=== PATIENT | female | born 1985 | race Hispanic/Latino ===

== ENCOUNTER 2016-06-11 20:48 | Emergency (ER) | payer OTHER ==
[2016-06-11 22:27] VITALS: BMI 32.5
--- NOTE | 2016-06-22 15:23 | OBHP ---
Datetime: 06/11/2016 22:18 IP Adm Impression: , intrauterine IP Chief Complaint Other: SOB IP Admit Plan: Observation/Evaluation Admit Comment, IP Provider: 30 yo , f, at 25.4 weeks GA with GINA: 09/20/16 present c/o SOB that started today in the mornig on exertion while walking and going up stairs. For that reason patient was evaluated in [facility] in the morning, was found to have O2 sat 80-84. Patient w as advised to do CT chest, but signed AMA and went home. Patient tried to contact her Ob Dr vazquez a nd she was advised to come to [facility] for evaluation. At this moment in [place] patient denies SOB, chest pain, palpitation, cough, fever, leg pain or swelling, VB, LOF, Ctx, Hx/o DVT . She report s + FM. POBHx: None PGynHx: None PMhx/o: none Allergies: none Meds: vit PSurgHx: none Assessment/Plan: 30 yo , f, at 25.4 weeks GA. SOB possible secondary to physiologic changes of the . -Observation -O2 sat 98-99 Edgar Spence PGY1 Case discussed with Dr Crump Addendum by attending Dr. Crump: Patient evaluated independently and I agree with the above. Patie nt is @ 25.4 wks with earlier complaints of shortness of breath, now has no complaints. Patient denies CP, no SOB, no N/V, no palpitations, Vitals stable - HR stable in the 80s, BP = 110s/70s and O 2Sat = 99-100%. FHR = 150 mod anish, no accels no decels. NO contractions on the monitor. Patient does not seem to be in distress or maternal/ compromise. SPoke with Dr. Vazqeuz, patient to be discha rged home and has appointment in office tomorrow. Labor precautions given Pelvic Type - PN: Adequate Extremities - PN: Normal Abdomen - PN: Normal Back - PN: Normal Breast - PN: Normal Lungs - PN: Normal Heart - PN: Normal Thyroid - PN: Normal Neurologic - PN: Normal HEENT - PN: Normal General - PN: Normal FHR - Baseline A Provider: 150 Comments, ACOG Physical Exam: Resp: RR: 14 resp/min. CTA, no rhonchi, rales, wheezing. O2 sat 98-99 on sitting position and flat position. no orthopnea EGA AdmitDate IP: 25.4 Vital Signs Provider: Reviewed; Within Normal Limits IP Chief Complaint: Other NICHD Variability Prov Fetus A: Moderate 6-25bpm NICHD Accel Fetus A IP Provider: 15X15 FHR Category Provider Fetus A: Category I NICHD Decel Fetus A IP Provider: None Genitourinary Exam: Normal DTRs - PN: Normal
== END 2016-06-11 22:15 | disposition home or self-care (01) ==
LOC: H.EROB2 20:48
DX: O47.02 False labor before 37 completed weeks of gestation, second trimester (principal); Z3A.25 25 weeks gestation of pregnancy

== ENCOUNTER 2016-07-16 08:48 | Emergency (ER) | payer OTHER ==
[2016-07-16 10:08] VITALS: BMI 29.9
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
--- NOTE | 2016-07-16 13:05 | US ---
PROCEDURE: Biophysical profile HISTORY: decreased movment COMPARISON: 03/25/2016 TECHNIQUE: Standard protocol for this study/examination. FINDINGS: FINDINGS: Biophysical profile score 8/8 Based on the followin. breathing movements: 2/2 2. Gross body movement: 2/2 3. tone: 2/2 4. Qualitative amniotic fluid index: 2/2 Cephalic presentation. Interior Placenta. No evidence of abruption or previa Gestational age derived from LMP 30 weeks 4 days Gestational age derived from the following biometric parameters 30 weeks 3 days . Biparietal diameter 7.58 cm Head [id number] cm Abdominal circumference 26.1 cm Femur length 5.8 cm Estimated weight 1556 g Calculated cardiac rate 137 beats per min. Closed cervix measuring 3.82 cm IMPRESSION: Biophysical profile score 8/8. Thirty weeks 3 days live intrauterine gestation. GINA based on LMP: 09/20/2016 GINA based on biometry: 09/21/2016.
== END 2016-07-16 13:54 | disposition home or self-care (01) ==
LOC: H.EROB2 08:48
DX: O47.03 False labor before 37 completed weeks of gestation, third trimester (principal); Z3A.30 30 weeks gestation of pregnancy

== ENCOUNTER 2016-08-26 22:26 | Emergency (ER) | payer OTHER ==
[2016-07-18 10:34] VITALS: BMI 29.9
--- NOTE | 2016-08-31 13:32 | OBHP ---
Datetime: 08/27/2016 07:57 IP Adm Impression: , intrauterine IP Admit Plan: Observation/Evaluation; Discharge home Admit Comment, IP Provider: Patient is a @ 36.4 wks with decreased movement all day. Ian es VB, leaking, no ctxns. No antepartum issues, no medical problems, no previous surgeries. LEL=218 m od anish, +accels, no decels, no contractions noted on toco. Reassured patient that the baby had a reac tive and reassuring tracing. Labor precautions given. F/U with primary ob this week Pelvic Type - PN: Adequate Extremities - PN: Normal Abdomen - PN: Normal Back - PN: Normal Breast - PN: Normal Lungs - PN: Normal Heart - PN: Normal Thyroid - PN: Normal Neurologic - PN: Normal HEENT - PN: Normal General - PN: Normal FHR - Baseline A Provider: 130 EGA AdmitDate IP: 36.4 Vital Signs Provider: Reviewed; Within Normal Limits IP Chief Complaint: Decreased movement NICHD Variability Prov Fetus A: Moderate 6-25bpm NICHD Accel Fetus A IP Provider: 15X15 NICHD Decel Fetus A IP Provider: None Genitourinary Exam: Normal DTRs - PN: Normal
== END 2016-08-26 23:10 | disposition home or self-care (01) ==
LOC: H.EROB2 22:26
DX: O47.03 False labor before 37 completed weeks of gestation, third trimester (principal); Z3A.36 36 weeks gestation of pregnancy

== ENCOUNTER 2016-09-20 12:10 | Inpatient (IN) | payer OTHER ==
[~2016-09-20 12:10] MED LIST: Lactated Ringer's 1,000 ML IV ONE
[2016-09-20 12:14] VITALS: BMI 36.9
[2016-09-20] MEDS: Lactated Ringer's 1,000 ML IV SCH (12:15)
[2016-09-20 12:28] LABS: BASO % 0.8 % (0.0-2.0); EOS % 0.6 % (0.0-4.0); HEMOGLOBIN 11.4 g/dL (12.0-16.0); LYMPH # 1.7 K/uL (1.0-4.3); LYMPH % 29.7 % (20.0-40.0); MEAN CELL VOLUME 83.7 fl (81.0-99.0); MEAN CORPUSCULAR HGB CONC 32.3 g/dL (33.0-37.0); MEAN PLATELET VOLUME 9.1 fl (7.2-11.7); MONO # 0.5 K/uL (0.0-0.8); MONO % 8.5 % (0.0-10.0); NEUT # 3.4 K/uL (1.8-7.0); NEUT % 60.4 % (50.0-75.0); RBC 4.21 Mil/uL (3.80-5.20); RED CELL DISTRIBUTION WIDTH 15.9 % (11.5-14.5); WHITE BLOOD COUNT 5.6 K/uL (4.8-10.8)
[2016-09-20 12:50] VITALS: O2SAT 99
--- NOTE | 2016-09-20 21:05 | OBADHP ---
Datetime: 09/20/2016 21:01 IP Adm Impression Other: maternal discofort/ decreased fm Admit Comment, IP Provider: adimit to unit and start on augumentation with cervidyl Extremities - PN: Normal Abdomen - PN: Abnormal Back - PN: Normal Breast - PN: Normal Lungs - PN: Normal Heart - PN: Normal Thyroid - PN: Normal Neurologic - PN: Normal HEENT - PN: Normal General - PN: Normal Presentation-Admit: cephalic FHR - Baseline A Provider: 140-150's Membranes, Provider: Intact Contraction Comments Provider: irregular Comments, ACOG Physical Exam: Abd gravid NT, small scars Fundus at term; Ext no calg tenderness Gestation - Est Wks by US: 40 wks IP Chief Complaint: Uterine contractions; Decreased movement NICHD Variability Prov Fetus A: Moderate 6-25bpm NICHD Accel Fetus A IP Provider: 10X10 NICHD Decel Fetus A IP Provider: None Dilatation, Provider: 1cm Effacement, Provider: 20% Genitourinary Exam: Normal DTRs - PN: Normal EGA AdmitDate IP: 40.0 IP Adm Impression: Term, intrauterine ; No Active Labor IP Admit Plan: Admit to unit; Initiate labor augmentation protocol Datetime: 08/27/2016 07:57 Pelvic Type - PN: Adequate Vital Signs Provider: Reviewed; Within Normal Limits Datetime: 06/11/2016 22:18 IP Chief Complaint Other: SOB FHR Category Provider Fetus A: Category I
[2016-09-21] MEDS ORDERED: Fentanyl/Bupivacaine HCl 250 ML EPI ONE (02:21)
[2016-09-21] MEDS ORDERED: Bupivacaine HCl 0.25% PF (10 ml) Inj ONE (02:22)
[2016-09-21] MEDS: Lactated Ringer's 1,000 ML IV SCH ×4 (03:05→20:42)
[2016-09-21] MEDS ORDERED: Oxytocin 30 units/LR 500ML 30 U/500 ML BAG IV ONE ×3 (07:16→07:27)
[2016-09-21] MEDS ORDERED: cefOXitin Sodium 1 GM in Sodium Chloride 0.9% 100 ML IVPB ONE (10:09)
[2016-09-21] MEDS ORDERED: Phenylephrine 10 mg/ml Inj ONE (10:14)
[2016-09-21] MEDS ORDERED: ePHEDrine 50 mg/ml Inj ONE (10:15)
[2016-09-21] MEDS ORDERED: Morphine 5 mg/10 ml preservative-free Inj(Duramorph) ONE (10:16)
[2016-09-21] MEDS ORDERED: Bupivacaine HCl 0.5% PF (30 ml) Inj ONE (10:18)
[2016-09-21] MEDS ORDERED: Sterile Water 10 ML IV ONE (10:25)
--- NOTE | 2016-09-21 12:01 | OBDS ---
DELIVERY PERSONNEL Delivery Doctor: Izabella Vazquez MD Scrub Nurse: Lorena CAMPBELL Auto Inspector: Carlie Delaney RN Anesthesiologist: Fransisco Fuller MD MATERNAL INFORMATION Delivery Anesthesia: Epidural Medications in Delivery: Pitocin 30 units Estimated Blood Loss (ml): 800cc Placenta Cultured: No Maternal Complications: None Provider Comments: see Dictated surgeons note LABOR SUMMARY EDC: 09/20/2016 00:00 No. Babies in Womb: 1 Attempted: No Labor Anesthesia: Epidural LABOR INFORMATION Reason for Induction: Other Reason for Induction Other: decreased movement Cervical Ripening Agents: Cervidil Oxytocin: Augmentation Group B Beta Strep: Negative Steroids Given: None Reason Steroids Not Administered: Not Applicable MEMBRANES Membranes Rupture Method: Spontaneous Rupture of Membranes: 09/21/2016 07:00 Length of Rupture (hrs): 4.10 Amniotic Fluid Color: Clear Amniotic Fluid Amount: Moderate Amniotic Fluid Odor: Normal STAGES OF LABOR Stage 3 hrs: 0 Stage 3 min: 1 VAGINAL DELIVERY Episiotomy: None Laceration Extension: N/A Laceration Type: None Laceration Repair: Not Applicable Sponge Count Correct: Yes Sharps Count Correct: Yes Count Comment: count correct x3 CSECTION DELIVERY Primary Indication: Other Other Primary Indication: maternal request CSection Urgency: Elective CSection Incidence: Primary Labor: Labor Elective: Elective CSection Incision: Lower Uterine Transverse Uterine Closure: Double-layer closure BABY A INFORMATION Infant Delivery Date/Time: 09/21/2016 11:06 Method of Delivery: Born in Route : No : N/A Forceps: N/A Vacuum Extraction: N/A Shoulder Dystocia : No SHOULDER DYSTOCIA BABY A Infant Delivery Date/Time: 09/21/2016 11:06 PRESENTATION/POSITION BABY A Presentation: Cephalic Cephalic Presentation: Vertex Breech Presentation: N/A PLACENTA INFORMATION BABY A Placenta Delivery Time : 09/21/2016 11:07 Placenta Method of Delivery: Manual Removal Placenta Status: Delivered SCORES BABY A Heart Rate 1 min: >100 bpm Resp Effort 1 min: Good Cry Reflex Irritability 1 min: Cough or Sneeze or Pulls Away Muscle Tone 1 min: Active Motion Color 1 min: Body [place], Extremities Blue Resuscitation Effort 1 min: Tactile Stimulation SCORE 1 MIN: 9 Heart Rate 5 min: >100 bpm Resp Effort 5 min: Good Cry Reflex Irritability 5 min: Cough or Sneeze or Pulls Away Muscle Tone 5 min: Active Motion Color 5 min: Body [place], Extremities Blue Resuscitation Effort 5 min: Tactile Stimulation SCORE 5 MIN: 9 INFORMATION BABY A Gestational Age at Delivery: 40.0 Gestational Status: Term Outcome : Liveborn Infant Condition : Stable Sex: Male IDENTIFICATION/MEDS BABY A ID Band Number: [id number] ID Band Location: Left Leg; Left Arm Vitamin K Given : Not Given Erythromycin Given: Not Given WEIGHT/LENGTH BABY A Birthweight (gms): 3430 Weight (lb): 7 Weight (oz): 9 CORD INFORMATION BABY A No. Cord Vessels: 3 Nuchal Cord : Around Neck x1, Loose, body Cord Blood Taken: Yes Suction: Mouth ASSESSMENT BABY A Infant Complications: None Physical Findings at Delivery: Within Normal Limits Infant Respirations: Appears Normal Fender Mechanic/ALS Called : No Care By: Emely Traylor RN Transferred To: Nursery
--- NOTE | 2016-09-21 12:26 | CP.PCM.PN ---
Subjective - Date & Time of Evaluation Date of Evaluation: 09/21/16 Time of Evaluation: 12:19 - Subjective Subjective: I just want to correct my waste recorded in the pyxis concerning Fentanyl with this patient. I took out fentanyl with the plan of partially using it. But then I changed my mind and gave the entire amount during the surgery. The Pyxis won't allow me to make the correction. This has been discussed with Iwona in the pharmacy and suggested to make this note instead. Objective - Vital Signs/Intake and Output Vital Signs (last 24 hours): Temp Pulse Resp BP Pulse Ox 98.2 F 112 H 20 127/77 99 09/20/16 12:48 09/20/16 12:48 09/20/16 12:48 09/20/16 12:48 09/20/16 12:48 - Medications Medications: Current Medications Docusate Sodium (Colace) 100 mg PO BID SARABJIT Lactated Ringer's (Lactated Ringer's) 1,000 mls @ 125 mls/hr IV .Q8H SARABJIT Last Admin: 09/21/16 10:00 Dose: 125 mls/hr Cefoxitin Sodium 1 gm/ Sodium (Chloride) 100 mls @ 100 mls/hr IVPB Q8 SARABJIT Stop: 09/22/16 01:59 Oxytocin (Pitocin 20 Units In Lr) 1,000 mls @ 125 mls/hr IV .Q8H PRN; Protocol PRN Reason: Post Ceaserean Section Ibuprofen (Motrin Tab) 600 mg PO Q4H PRN PRN Reason: Pain, Mild (1-3) Ketorolac Tromethamine (Toradol) 30 mg IVP Q6 PRN PRN Reason: Pain, moderate (4-7) Stop: 09/22/16 23:59 Morphine Sulfate (Morphine) 4 mg IVP Q4 PRN PRN Reason: Pain, severe (8-10) Stop: 09/22/16 23:59 Ondansetron HCl (Zofran Inj) 4 mg IVP Q6 PRN PRN Reason: Nausea/Vomiting Oxycodone/Acetaminophen (Percocet 5/325 Mg Tab) 1 tab PO Q4 PRN PRN Reason: Pain, moderate (4-7) Stop: 09/24/16 12:04
[2016-09-21] MEDS: cefOXitin Sodium 1 GM in Sodium Chloride 0.9% 100 ML IVPB SCH (17:38)
[2016-09-22] MEDS: cefOXitin Sodium 1 GM in Sodium Chloride 0.9% 100 ML IVPB SCH ×2 (00:35→08:13)
[2016-09-22] MEDS: Oxycodone/Acetaminophen 5/325 mg Tab PO PRN ×2 (00:41→06:31)
[2016-09-22] MEDS: Lactated Ringer's 1,000 ML IV SCH ×2 (06:05→13:56)
[2016-09-22 08:39] LABS: HEMOGLOBIN 9.9 g/dL (12.0-16.0); MEAN CELL VOLUME 83.6 fl (81.0-99.0); MEAN CORPUSCULAR HEMOGLOBIN 27.6 pg (27.0-31.0); RBC 3.6 Mil/uL (3.80-5.20); RED CELL DISTRIBUTION WIDTH 16.4 % (11.5-14.5)
[2016-09-22 08:44] LABS: WHITE BLOOD COUNT 8.7 K/uL (4.8-10.8)
--- NOTE | 2016-09-22 10:00 | OBPPN ---
Datetime: 09/22/2016 09:48 PP Pain Prov: Within normal limits PP Nausea Prov: Denies PP Flatus Prov: Yes PP BM Prov: No PP Breasts Prov: Normal PP Heart Prov: Normal PP Lungs Prov: Normal PP Abdomen/Uterus Prov: Normal PP Lochia Prov: Normal PP Vulva/Perineum Prov: Normal PP CVA Tenderness Prov: Normal PP Extremities Prov: Normal PP C/S Incision Prov: Normal PP Progress Prov: Normal PP Impression Prov: Normal progression PP Plan Prov: Continue present management PP Progress Note Prov: stable pod1 only c/o incisional pain dressing clean dc murillo oob with assista nce continue present care IP PP Procedures: None Vital Signs Provider PP: Reviewed; Within Normal Limits
[2016-09-23] MEDS: Simethicone 80 mg Chewtab PO PRN ×2 (00:11→19:39)
--- NOTE | 2016-09-23 13:25 | OBPPN ---
Datetime: 09/23/2016 13:18 PP Pain Prov: Within normal limits PP Nausea Prov: Denies PP Flatus Prov: Yes PP BM Prov: Yes PP Breasts Prov: Normal PP Heart Prov: Normal PP Lungs Prov: Normal PP Abdomen/Uterus Prov: Normal PP Lochia Prov: Normal PP Vulva/Perineum Prov: Normal PP CVA Tenderness Prov: Normal PP Extremities Prov: Normal PP C/S Incision Prov: Normal PP Progress Prov: Normal PP Impression Prov: Normal progression PP Plan Prov: Continue present management PP Progress Note Prov: stable pod2,continue present care IP PP Procedures: None Vital Signs Provider PP: Reviewed; Within Normal Limits
--- NOTE | 2016-09-23 17:39 | OBPPN ---
Datetime: 09/23/2016 17:36 PP Pain Prov: Within normal limits PP Pain Prov comment: Denies SOB, chest pains or leg pains PP Nausea Prov: Denies PP Flatus Prov: Yes PP BM Prov: Yes PP Nausea Prov comment: Denies C/F PP Breasts Prov: Normal PP Lungs Prov: Normal PP Abdomen/Uterus Prov: Abnormal PP Lochia Prov: Normal PP Vulva/Perineum Prov: Normal PP CVA Tenderness Prov: Normal PP Extremities Prov: Normal PP C/S Incision Prov: Normal PP Progress Prov: Normal PP Comments Phys Exam Prov: Abd soft ND, fundus firm below the umb, incision clean and dry no active bleeding no sign of infection Ext no calf tenderness PP Impression Prov: Normal progression PP Plan Prov: Continue present management PP Progress Note Prov: Continiue PO care and OOB and ambulation IP PP Procedures: None Vital Signs Provider PP: Reviewed
--- NOTE | 2016-09-24 06:25 | OBPPN ---
Datetime: 09/24/2016 06:21 PP Pain Prov: Within normal limits PP Pain Prov comment: No SOB, chest pains or leg pains PP Nausea Prov: Denies PP Flatus Prov: Yes PP BM Prov: Yes PP Breasts Prov: Normal PP Lungs Prov: Normal PP Abdomen/Uterus Prov: Abnormal PP Lochia Prov: Normal PP Vulva/Perineum Prov: Normal PP CVA Tenderness Prov: Normal PP Extremities Prov: Normal PP C/S Incision Prov: Normal PP Progress Prov: Normal PP Comments Phys Exam Prov: Abd soft, ND depressible fundus firm below umb. Incision clean and dry no actgive bleeding ext no calf tenderness PP Impression Prov: Normal progression PP Plan Prov: Discharge PP Progress Note Prov: D/C home with instructions IP PP Procedures: None Vital Signs Provider PP: Reviewed
--- NOTE | 2016-09-24 06:28 | OBDCSUM ---
Datetime: 09/24/2016 06:23 Discharged to, Provider: Home Follow up at, Provider: Dr Vazquez Disch Instr Activity: Bedrest; May be up to bathroom; May be up for meals; May Shower Disch Instr Diet: Regular Discharge Instructions, Provider: Routine instructions given Discharge Diagnosis, Provider: Term Delivered Discharge Time: 09/24/2016 06:24 Follow up in weeks, Provider: 1 wk Disch Referrals: None Contraception discussed, Prov: Yes Disch Activity Restrictions: No exercising; No lifting; No driving; Minimize walking; Minimize stair -climbing; No sexual activity; Nothing in vagina - [place], tampons, douche Discharge Comment, Provider: Continue PNC vit and iron Rx for percocet given and instructions given Contraception after Delivery: Undecided
[2016-09-24] MEDS ORDERED: Measles, Mumps, and Rubella 0.5 ML VIAL SC ONE (07:44)
[2016-09-24 17:38] VITALS: BP 99/57; PULSE 63; RESP 18; TEMP 98.7
--- NOTE | 2016-09-24 18:11 | OP ---
PROCEDURE DATE: 09/21/2016 PREOPERATIVE DIAGNOSES: 1. at term. 2. Decrease movement. 3. Nonreassuring tracing. 4. Maternal request. POSTOPERATIVE DIAGNOSES: 1. at term. 2. Decrease movement. 3. Nonreassuring tracing. 4. Maternal request. 5. Nuchal cord x1 and cord around the body x1. PROCEDURE PERFORMED: Primary low-transverse segment caesarean section. SURGEON: Dr. Vazquez. PRINTING SUPPLIES SALES REPRESENTATIVE: Dr. Crump, who was there for the entire duration of the case. Mineral Surveyor was needed in order to provide aid in delivering of the baby, positioning of the patient, opening and closure of the abdomen. ANESTHESIA USED: Epidural per Dr. Fuller. ESTIMATED BLOOD LOSS: 800 mL. DRAINS USED: None. REPLACEMENTS USED: None. FINDINGS: 1. Delivered a living baby girl, baby appears term. Baby cried spontaneously. Pediatrics in attendance. score of 9 and 9. 2. Nuchal cord x1 and cord around the body x1. 3. Amniotic fluid clear. 4. Placenta complete and intact. 5. Both tubes and ovaries appear grossly within normal limits to inspection bilaterally. DESCRIPTION OF PROCEDURE: The patient was taken to the operating room, placed on the operating table in supine position. Following induction of epidural anesthesia augmentation, the abdomen was draped and prepped in the usual sterile manner. A Lozano catheter had been inserted and bladder was draining clear fluid. Venodyne boots were applied to both legs. After draping and prepping the abdomen in the usual sterile manner, a Pfannenstiel incision was then made using sharp dissection. The incision was then extended to subcutaneous tissue also using sharp dissection. Hemostasis was obtained by means of electrocoagulation. At this time, the fascia was then identified was then entered in midline. Incision of the facia was then extended superiorly and inferiorly on the direct visualization. Following this we then proceeded to identify rectus muscle which was then slid in the midline disposing the peritoneum. Peritoneal layer was then picked up using two Lorraine clamp, resected superiorly and inferiorly using sharp dissection. Incision of the peritoneum was then superiorly and inferiorly extended on the direct visualization. The bladder was then identified and was then retracted inferiorly using a Culbertson retractor. The lower tracer segment of the uterus was then identified. The visceroperitoneum covering this area was then entered using sharp dissection. Using blunt dissection a bladder flap was then created and retracted inferiorly using the Culbertson retractor. Following this we then proceeded to make in the low transverse segment of the uterus upon entering the uterine cavity, clear fluid noted to be present. The incision was then extended laterally on each direction using bandage scissors. Using the manual scooping procedure, living baby boy delivered. There was a cord around the neck which was unknown prior to full delivery. The baby was immediately re-aspirated using a bulb suction. There was another cord around the body. The umbilicus was then doubly clamped, cut, and the baby handed to the pediatric personnel who was standing by. Samples of cord blood were then obtained and the and the placenta was then delivered complete and intact. Uterus was then exteriorized in order to provide better visualization and the uterine cavity was then thoroughly cleaned using moist lap pad. At this times the edges of the uterine incision was then secured using multiple declamps and the uterine incision was then approximated after the uterus was massaged and contracted well. The uterine incision was then approximated using 0-Vicryl suture in a continuous interlocking manner. A second layer was also applied using 0-Vicryl suture in a continued manner. At this time, the bladder flap was then approximated using 3-0 Vicryl in a continued run. Hemostasis was checked and found to be well secured. Both tube and ovaries appeared grossly within normal limits to inspection bilaterally. Free amniotic fluid and blood were then evacuated from the pelvic cavity. The uterus was then allowed to retract back into its original position. All operative area checked, hemostatically secured and the peritoneum was then closed using 0-Vicryl suture in a continued manner. Rectus muscle was also approximated in the midline using 0-Vicryl suture in a continued manner. At this time, the fascia was then It was then approximated using 1-Vicryl suture in a continued manner. Fascia was then checked and found to be free of defects. Subcutaneous tissue was then irrigated using saline solution and approximated using several interrupted 3-0 plain sutures. The skin was then approximated using a 3-0 Prolene in the subcuticular fashion. Steri-Strips were then applied. The patient tolerated the procedure well. There were no complications. She was transferred to the recovery room in satisfactory condition. Sponge, instrument, and needle count correct x3. Clear fluid noted to be present in the Lozano bag at this time. Rodolfo Vazquez MD [facility] # [id number]
== END 2016-09-24 13:00 | disposition home or self-care (01) | DRG 371 ==
LOC: H.EROB2 12:10 → H.L&D 12:15 → H.OB/GYN 09-21 14:40
PROVIDERS: ADMIT Specialist; ATTEND Specialist
PROC: 4A1HXCZ Monitoring of Products of Conception, Cardiac Rate, External Approach (ICD-10-PCS; 2016-09-20)
PROC: 10D00Z1 Extraction of Products of Conception, Low, Open Approach (ICD-10-PCS; principal; 2016-09-21)
DX: O36.8130 Decreased fetal movements, third trimester, not applicable or unspecified (principal); O48.0 Post-term pregnancy; O76 Abnormality in fetal heart rate and rhythm complicating labor and delivery; O69.81X0 Labor and delivery complicated by cord around neck, without compression, not applicable or unspecified; Z3A.40 40 weeks gestation of pregnancy; Z37.0 Single live birth